=== PATIENT | female | born 1990 | race Caucasian/White ===

== ENCOUNTER 2017-02-28 05:26 | Inpatient (IN) | payer OTHER ==
[~2017-02-28] VITALS: Ht 165.1 cm; Wt 92.5 kg
[~2017-02-28 05:26] MED LIST: AUGMENTIN 875-1 EACH PO; IBUPROFEN800 M1 PO; ZITHROMAX250 M2 PO
[2017-02-28] MEDS ORDERED: PRENATAL TABLE1 EAC2 PO (10:09)
[2017-02-28] MEDS ORDERED: FERRALET 90 TA1 EACH PO (10:10)
[2017-02-28 10:46] LABS: ABSOLUTE BASOPHIL COUNT 0 /CUMM (0.0-0.2); ABSOLUTE EOSINOPHIL COUNT 0.1 /CUMM (0.0-0.7); ABSOLUTE GRANULOCYTE CT 10.9 /CUMM (1.4-6.5); ABSOLUTE LYMPH COUNT 1.9 /CUMM (1.2-3.4); ABSOLUTE MONOCYTE COUNT 0.9 /CUMM (0.10-0.60); BASOPHIL % 0.2 % (0.0-2.0); GRANULOCYTE % 78.6 % (42.2-75.2); HEMATOCRIT 32.7 % (37-47); MEAN CORPUSCULAR HGB CONC 33.5 G/DL (33.0-37.0); MEAN CORPUSCULAR VOLUME 86.8 FL (81.0-99.0); MEAN PLATELET VOLUME 8.1 FL (7.4-10.4); PLATELET COUNT 233 /CUMM (130-400); RBC DISTRIBUTION WIDTH 13.2 % (11.5-14.5); RED BLOOD CELL CT 3.77 /CUMM (4.20-5.40); WHITE BLOOD CELL COUNT 13.8 /CUMM (4.8-10.8)
--- NOTE | 2017-02-28 11:28 | History & Physical ---
General Information and [facility] MD Statement: I have seen and personally examined RENU MAGDALENO and documented this H&P. The patient is a 26 year old female at [40] weeks and [3] days gestation who presented with a chief complaint of contractions. Source of Information: patient History of Present Illness: The patient is a 26 year old female at [40] weeks and [3] days gestation who presented with a chief complaint of contractions. Patient describes being unable to sleep overnight due to the contractions. Describes becoming more frequent and intense. Denies LOF or VB. 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 Last Menstrual Period: 05/10/16 Past automotive glass technician History: none Medical History Neurological: NONE EENT: NONE Cardiovascular: NONE Respiratory: NONE Gastrointestinal: NONE Hepatic: NONE Renal: NONE Musculoskeletal: NONE Psychiatric: NONE Endocrine: NONE Surgical History Pertinent Surgical History: N Past Family/Social History Psychosocial History Smoking Status: Former Smoker Review of Systems Review of Systems: Negative for all review of systems other than those described in HPI Exam & Diagnostic Data Last 24 Hrs of Vital Signs/I&O Intake & Output / 1600 05/07 0800 05/07 0000 Intake Total Output Total Balance Patient 92.533 kg Weight Obstetric Exam Wgt Gained During : 18 lbs Pelvimetry: appropriate Dilation (cm): 45 Effacement (%): 90 Station: -2 Membranes: intact Fluid: unknown Fundal Height (cm): 40 Multiple Gestation? No Contractions: Q4 min #1 - FHR Baseline: 140 Category: 1 Estimated Weight: 3500 Presentation: cephalic by US Patient for Induction? No Physical Exam: NAD, pain with contractions RRR CTAB Gravid, NT +1 pitting edema Labs Blood Type & Rh: O POS Antibody Screen: neg Hct/Hgb & Platelets #1: 33.1/11.2/241 Hct/Hgb & Platelets #2: 32.7/10.9/233 Rubella: immune VDRL #1: NR VDRL #2: NR HbsAg: NR HIV #1: NR HIV #2 NR 1 Hr P Group B Strep: Neg Initial Ultrasound: No report available Anatomy Ultrasound: No report available Genetic Testing: First trimeste negative Last 24 Hrs of Labs/Darrin: Laboratory Tests 02/28/17 0957: CBC w Diff NO MAN DIFF REQ, RBC 3.77 L, MCV 86.8, MCH 29.0, RDW 13.2, MPV 8.1, Gran % 78.6 H, Lymphocytes % 13.6 L, Monocytes % 6.6, Eosinophils % 1.0, Basophils % 0.2, Absolute Granulocytes 10.9 H, Absolute Lymphocytes 1.9, Absolute Monocytes 0.9 H, Absolute Eosinophils 0.1, Absolute Basophils 0, PUBS MCHC 33.5 02/28/17 0949: Urinalysis MANY H, Urine Color YEL, Urine Clarity HAZY H, Urine pH 7.5, Ur Specific [place] 1.020, Urine Protein NEG, Urine Ketones NEG, Urine Nitrite NEG, Urine Bilirubin NEG, Urine Urobilinogen 0.2, Ur Leukocyte Esterase SMALL H, Ur Microscopic SEDIMENT EXAMINED, Urine WBC 5-10 H, Ur Epithelial Cells MANY H, Urine Bacteria MOD H, Urine Hemoglobin NEG, Urine Glucose NEG Assessment/Plan Assessment/Plan: 26 yo female at 40w3d here in labor. Admit to inpatient Continous monitoring IVF, Ice chips IV pain control with Stadol. Patient will want epidural in future, but will hold off for now. CBC Anticipate As Ranked By This Provider Problem List: 1. Core Measures/Miscellaneous Venous Thromboembolism VTE Risk Factors: / VTE Contraindications: Abn Clotting Times (none) VTE Diagnosis: No Beta Parmjit Is Beta Parmjit a Home Med? No Antibiotics Is Patient on Antibiotics? No Attending MD Review Statement Attending Statement Attending MD Statement: examined this patient, discussed with family, reviewed EMR data (avail), discussed w/nursing
--- NOTE | 2017-02-28 17:53 | PN- Obstetrical ---
Subjective Subjective: Comfortable now. Has epidural in place (recently done). No complaints. Objective Last 24 Hrs of Vital Signs/I&O Intake & Output 02/28 1600 02/28 0800 02/28 0000 Intake Total Output Total Balance Patient 92.533 kg Weight Physical Exam: NAD Gravid Obstetric Exam Dilation (cm): 6 Effacement (%): 90 Station: -2 Membranes: AROM Fluid: clear Multiple Gestation? No Contractions: Q2 minutes #1 - FHR Baseline: 150 Category: 2 (occasional variable vs lates) Estimated Weight: 3500 Presentation: cephalic by US Last 24 Hrs of Labs/Darrin: Laboratory Tests 02/28/17 0957: CBC w Diff NO MAN DIFF REQ, RBC 3.77 L, MCV 86.8, MCH 29.0, RDW 13.2, MPV 8.1, Gran % 78.6 H, Lymphocytes % 13.6 L, Monocytes % 6.6, Eosinophils % 1.0, Basophils % 0.2, Absolute Granulocytes 10.9 H, Absolute Lymphocytes 1.9, Absolute Monocytes 0.9 H, Absolute Eosinophils 0.1, Absolute Basophils 0, PUBS MCHC 33.5 02/28/17 0949: Urinalysis MANY H, Urine Color YEL, Urine Clarity HAZY H, Urine pH 7.5, Ur Specific [place] 1.020, Urine Protein NEG, Urine Ketones NEG, Urine Nitrite NEG, Urine Bilirubin NEG, Urine Urobilinogen 0.2, Ur Leukocyte Esterase SMALL H, Ur Microscopic SEDIMENT EXAMINED, Urine WBC 5-10 H, Ur Epithelial Cells MANY H, Urine Bacteria MOD H, Urine Hemoglobin NEG, Urine Glucose NEG Assessment/Plan Assessment/Plan 26 yo female in active labor AROM clear at this check 6cm. Continue to montitor closely Epidural in and comfortable FHT reassuring at this time. Occasional decels seen, however overall reactive and reassuring.l
[2017-03-01 01:01] VITALS: BP 106/70
[2017-03-01 08:46] LABS: ABSOLUTE BASOPHIL COUNT 0 /CUMM (0.0-0.2); ABSOLUTE EOSINOPHIL COUNT 0 /CUMM (0.0-0.7); ABSOLUTE LYMPH COUNT 1.5 /CUMM (1.2-3.4); EOSINOPHIL % 0.2 % (0-5); PLATELET COUNT 193 /CUMM (130-400)
[2017-03-01 09:03] LABS: ABSOLUTE GRANULOCYTE CT 14.1 /CUMM (1.4-6.5); ABSOLUTE MONOCYTE COUNT 0.9 /CUMM (0.10-0.60); BASOPHIL % 0.1 % (0.0-2.0); MEAN CORPUSCULAR HGB 29.5 PG (27.0-31.0); MEAN CORPUSCULAR VOLUME 86.6 FL (81.0-99.0); MEAN PLATELET VOLUME 8.5 FL (7.4-10.4); RBC DISTRIBUTION WIDTH 13.4 % (11.5-14.5); RED BLOOD CELL CT 2.97 /CUMM (4.20-5.40); WHITE BLOOD CELL COUNT 16.6 /CUMM (4.8-10.8)
[2017-03-01 09:10] LABS: HEMATOCRIT 25.8 % (37-47)
[2017-03-01] MEDS ORDERED: IBUPROFEN800 M1 PO (12:08)
[2017-03-01] MEDS ORDERED: PERCOCET 5-3251 EACH PO (12:12)
== END 2017-03-01 15:08 | DRG 560 ==
LOC: CBCO 05:26 → GNO 09:24
PROVIDERS: Obstetrics & Gynecology; ADMIT Specialist
PROC: 10E0XZZ Delivery of Products of Conception, External Approach (ICD-10-PCS; principal; 2017-02-28)
PROC: 10S0XZZ Reposition Products of Conception, External Approach (ICD-10-PCS; principal; 2017-02-28)
DX: O66.0 Obstructed labor due to shoulder dystocia (principal); O69.81X0 Labor and delivery complicated by cord around neck, without compression, not applicable or unspecified; O76 Abnormality in fetal heart rate and rhythm complicating labor and delivery; Z3A.40 40 weeks gestation of pregnancy; Z37.0 Single live birth
CPT/HCPCS: GNOP; 81001; 87086; 94799; G0463; J0595

== ENCOUNTER 2017-03-08 23:24 | Emergency (ER) | payer OTHER ==
[~2017-03-08] VITALS: Ht 165.1 cm; Wt 86.6 kg
[~2017-03-08 23:24] MED LIST changes: +FERRALET 90 TA1 EACH PO; +PERCOCET 5-3251 EACH PO; +PRENATAL TABLE1 EAC2 PO
[2017-03-08 23:49] VITALS: BP 126/75
--- NOTE | 2017-03-09 00:17 | ED GI/GU/ABDOMINAL COMPLAINT ---
History of Present Illness General Chief Complaint: General Adult Stated Complaint: ? SUTURE INF S/P EPISIOTOMY 02/28/17 SENT BY OB Source: patient Exam Limitations: no limitations Vital Signs & Intake/Output Vital Signs & Intake/Output Vital Signs Date Time Temp Pulse Resp B/P B/P Pulse O2 O2 Flow FiO2 Mean Ox Delivery Rate 03/09 0023 98 Room Air 03/08 2349 97.6 72 18 126/75 98 Room Air ED Intake and Output 03/09 0000 03/08 1200 Intake Total Output Total Balance Patient 191 lb Weight Weight Reported by Patient Measurement Method Allergies Coded Allergies: amoxicillin (HIVES 03/16/16) apple (ITCHING 02/28/17) peach (ITCHING 02/28/17) penicillin G (RASH 03/16/16) Reconcile Medications Cephalexin (Keflex) 500 MG CAPSULE 1 CAP PO 4XD cellulitis Ibuprofen 800 MG TABLET 800 MG PO Q6P PRN UTERINE CRAMPING Iron Carb,Gl/FA/B12/C/Docusate (Ferralet 90 Tablet) 90 MG-1 MG-12 MCG-120 MG-50 MG TABLET 1 TAB PO DAILY anemia (Reported) Oxycodone HCl/Acetaminophen (Percocet 5-325 MG Tablet) 5 MG-325 MG TABLET 2 TAB PO Q4P PRN HEADACHE Vit No.130/Iron/FA ( Tablet) 27 MG IRON-800 MCG TABLET 1 TAB PO DAILY (Reported) Sulfamethoxazole/Trimethoprim (Bactrim Ds Tablet) 800 MG-160 MG TABLET 1 TAB PO BID cellulitis Triage Note: PT SENT TO ED BY [facility] [employer] [facility] FOR ?INFECTION TO SUTURE SITE. HAD EPISIOTOMY WITH VAGINAL DELIVERY ON 02/28/17. PER PATIENT:REDNESS, DRAINAGE AND IS GAPING. STATES SUTURES ARE DESOLVABLE. SISTER IS ALLERGIC TO THIS TYPE OF SUTURE. 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 yes ? n Is pt currently ? Yes Onset: Gradual Duration: day(s): Timing: recent history Quality/Severity: burning Location: vaginal Radiation: no radiation Activities at Onset: none Modifying Factors: Worsens With: palpation. Associated Symptoms: "I have pain and burning where I had my episiotomy." HPI: 26-year-old woman had a vaginal delivery 1 week ago, presents with pain, tenderness, warmth in the area where she had her episiotomy. She's had these symptoms for the past 1-2 days. She notes it is hard to sit. She notes there is no vaginal discharge. She has no fever chills dysuria. Her is doing well. She has no other concerns. Past History Travel History Traveled to [place] past 21 day No Medical History Any Pertinent Medical History? see below for history Neurological: NONE EENT: NONE Cardiovascular: NONE Respiratory: NONE Gastrointestinal: NONE Hepatic: NONE Renal: NONE Musculoskeletal: NONE Psychiatric: NONE Endocrine: NONE Surgical History Surgical History: N Psychosocial History What is your primary language Latvian Tobacco Use: Quit >30 days ago ETOH Use: denies use Illicit Drug Use: denies illicit drug use Family History Hx Contributory? No Review of Systems Review of Systems Constitutional: Reports: no symptoms. EENTM: Reports: no symptoms. Respiratory: Reports: no symptoms. Cardiovascular: Reports: no symptoms. GI: Reports: no symptoms. Genitourinary: Reports: no symptoms. Musculoskeletal: Reports: no symptoms. Skin: Reports: no symptoms. Neurological/Psychological: Reports: no symptoms. Hematologic/Endocrine: Reports: no symptoms. Immunologic/Allergic: Reports: no symptoms. All Other Systems: Reviewed and Negative Physical Exam Physical Exam General Appearance: well developed/nourished, mild distress Head: atraumatic, normal appearance Eyes: Bilateral: normal appearance. Ears, Nose, Throat, Mouth: hearing grossly normal Neck: normal inspection Respiratory: no respiratory distress Gastrointestinal: normal bowel sounds, soft Pelvic: right lower vaginal area with small dehiscence of the episiotomy. Mild to moderate tenderness to palpation. I palpated the area vigorously. There does not seem to be any abscess. There is no drainage. Core Measures ACS in differential dx? No Severe Sepsis Present: No Septic Shock Present: No Progress Differential Diagnosis: wound infection versus inflammation versus other Plan of Care: Current Medications Sig/Rodney Start time Last Medication Dose Stop Time Status Admin Cephalexin 500 MG ONCE ONE 03/09 30 UNVr (Keflex) 03/09 31 Trimethoprim/ 1 TAB ONCE ONE 03/09 30 UNVr Sulfamethoxazole 03/09 31 (Bactrim DS) Initial ED EKG: none Departure Departure Disposition: HOME OR SELF CARE Condition: Stable Clinical Impression Primary Impression: Postoperative infection Referrals: PATIENT HAS NO PRIMARY CARE DR (PCP/Family) Departure Forms: Customer Survey General Discharge Information Prescriptions: Current Visit Scripts Cephalexin (Keflex) 1 CAP PO 4XD #40 CAP Sulfamethoxazole/Trimethoprim (Bactrim Ds Tablet) 1 TAB PO BID #20 TAB
[2017-03-09] MEDS ORDERED: KEFLEX500 M1 PO (00:27)
[2017-03-09] MEDS ORDERED: BACTRIM DS TAB1 EACH PO (00:27)
== END 2017-03-09 00:36 ==
LOC: ERH 23:24
DX: T81.4XXA Infection following a procedure, initial encounter (principal); Y84.8 Other medical procedures as the cause of abnormal reaction of the patient, or of later complication, without mention of misadventure at the time of the procedure